=== PATIENT | female | born 1950 | race Caucasian/White ===

== ENCOUNTER → 2020-12-17 | Outpatient (CLI) | payer SELFPAY | LOC: M LABSMTC 11:01 | PROVIDERS: ATTEND Pediatrics | DX: Z11.52 Encounter for screening for COVID-19 (principal) ==

== ENCOUNTER → 2024-04-13 | Outpatient (CLI) | payer MEDICARE ==
[~2024-04-13] MED LIST: GNP250TA9 PO; K 10100T PO; LEVO75TA4 PO; OYST500C PO; VITA100T59 PO; VITATAB73 PO
== END ==
LOC: M WHC 12:06 → MERGE 12:44
PROVIDERS: ATTEND Family Medicine
DX: Z85.3 Personal history of malignant neoplasm of breast (principal); Z90.12 Acquired absence of left breast and nipple

== ENCOUNTER → 2024-04-13 | Outpatient (CLI) | payer MEDICARE | LOC: MERGE 12:09 → M PLAIMG 12:09 | PROVIDERS: ATTEND Otolaryngology | DX: J32.8 Other chronic sinusitis (principal); Z85.3 Personal history of malignant neoplasm of breast; Z12.31 Encounter for screening mammogram for malignant neoplasm of breast; Z90.12 Acquired absence of left breast and nipple ==

== ENCOUNTER → 2024-05-01 | Outpatient (CLI) | payer MEDICARE | LOC: M CARPUL 07:51 → MERGE 10:30 | PROVIDERS: ATTEND Family Medicine | DX: R55 Syncope and collapse (principal) ==

== ENCOUNTER → 2024-05-01 | Outpatient (CLI) | payer MEDICARE | LOC: M RAD 07:54 → MERGE 08:00 | PROVIDERS: ATTEND Family Medicine | DX: R55 Syncope and collapse (principal) ==

== ENCOUNTER → 2025-05-18 | Outpatient (CLI) | payer MEDICARE ==
[~2025-05-18] MED LIST changes: +BUSP5TA PO
== END ==
LOC: M RAD 10:20
PROVIDERS: ATTEND Family Medicine
DX: R19.00 Intra-abdominal and pelvic swelling, mass and lump, unspecified site (principal)

== ENCOUNTER 2025-05-21 09:49 | Day surgery (SDC) | payer MEDICARE ==
[~2025-05-21] VITALS: Ht 170.2 cm; Wt 67.1 kg
[~2025-05-21 09:49] MED LIST changes: +LR 1,000 ML IV SCH
[2025-05-21] MEDS: CYCLOPENTOLATE 1% OPHTH SOLN 2 ML BTL OD SCH (11:15)
[2025-05-21] MEDS: FLURBIPROFEN 0.03% OPHTH SOLN 2.5 ML OD SCH (11:15)
[2025-05-21] MEDS: PHENYLEPHRINE 2.5% OPHTH SOL 2ML OD SCH (11:15)
[2025-05-21] MEDS: TETRACAINE 0.5% OPHTH SOLN 4ML OD SCH (11:15)
[2025-05-21] MEDS ORDERED: MIDAZOLAM INJ 2 MG/2 ML VIAL As Ordered ONE (12:29)
[2025-05-21] MEDS: LIDOCAINE 1% SDV 5 ML VIAL As Ordered ONE (13:01)
[2025-05-21] MEDS: CEFUROXIME 1 MG/0.1 ML INTRACAMERAL INJ As Ordered ONE (13:03)
[2025-05-21 13:38] VITALS: BP 113/59; TEMP 97.3; O2SAT 99
== END 2025-05-21 13:40 | disposition home or self-care (01) ==
LOC: M SDC 09:49
PROVIDERS: ATTEND Ophthalmology
DX: H25.11 Age-related nuclear cataract, right eye (principal); E03.9 Hypothyroidism, unspecified; F32.A Depression, unspecified; F41.9 Anxiety disorder, unspecified; Z79.890 Hormone replacement therapy; Z79.899 Other long term (current) drug therapy; Z85.3 Personal history of malignant neoplasm of breast; Z92.3 Personal history of irradiation; K21.9 Gastro-esophageal reflux disease without esophagitis; Z90.89 Acquired absence of other organs; Z87.891 Personal history of nicotine dependence
CPT/HCPCS: 66984; J0697; J2250; J3010; V2632

== ENCOUNTER 2025-08-20 10:53 | Day surgery (SDC) | payer MEDICARE ==
[~2025-08-20] VITALS: Ht 170.2 cm; Wt 68.4 kg
[~2025-08-20 10:53] MED LIST changes: +CEFUROXIME 1 MG/0.1 ML INTRACAMERAL INJ As Ordered ONE; +LIDOCAINE 1% SDV 5 ML VIAL As Ordered ONE
[2025-08-20] MEDS ORDERED: MIDAZOLAM INJ 2 MG/2 ML VIAL As Ordered ONE (12:03)
[2025-08-20] MEDS: TETRACAINE 0.5% OPHTH SOLN 4ML OS SCH (12:10)
[2025-08-20] MEDS: PHENYLEPHRINE 2.5% OPHTH SOL 2ML OS SCH (12:10)
[2025-08-20] MEDS: CYCLOPENTOLATE 1% OPHTH SOLN 2 ML BTL OS SCH (12:10)
[2025-08-20] MEDS: FLURBIPROFEN 0.03% OPHTH SOLN 2.5 ML OS SCH (12:10)
[2025-08-20 13:45] VITALS: BP 115/58; TEMP 97.1; O2SAT 98
== END 2025-08-20 13:59 | disposition home or self-care (01) ==
LOC: M SDC 10:53
PROVIDERS: ATTEND Ophthalmology
DX: H25.12 Age-related nuclear cataract, left eye (principal); E03.9 Hypothyroidism, unspecified; Z85.3 Personal history of malignant neoplasm of breast; Z79.899 Other long term (current) drug therapy; Z79.890 Hormone replacement therapy; Z92.3 Personal history of irradiation
CPT/HCPCS: 66984; J0697; J2250; J3010; V2632

== ENCOUNTER → 2025-08-22 | Outpatient (CLI) | payer MEDICARE ==
[~2025-08-22] MED LIST changes: -CEFUROXIME 1 MG/0.1 ML INTRACAMERAL INJ As Ordered ONE; -LIDOCAINE 1% SDV 5 ML VIAL As Ordered ONE; -LR 1,000 ML IV SCH
== END ==
LOC: M CLY 10:14
PROVIDERS: ATTEND Physician Assistant
DX: S82.51XA Displaced fracture of medial malleolus of right tibia, initial encounter for closed fracture (principal); M17.11 Unilateral primary osteoarthritis, right knee; M25.571 Pain in right ankle and joints of right foot; M25.561 Pain in right knee; Y93.9 Activity, unspecified; Y92.9 Unspecified place or not applicable

== ENCOUNTER → 2025-10-04 | Outpatient (CLI) | payer MEDICARE | LOC: M PLAIMG 12:25 | PROVIDERS: ATTEND Orthopaedic Surgery | DX: S86.911A Strain of unspecified muscle(s) and tendon(s) at lower leg level, right leg, initial encounter (principal); S80.01XA Contusion of right knee, initial encounter; M94.261 Chondromalacia, right knee; M25.761 Osteophyte, right knee; M71.21 Synovial cyst of popliteal space [Baker], right knee; X58.XXXA Exposure to other specified factors, initial encounter; Y92.9 Unspecified place or not applicable; Y93.9 Activity, unspecified; Y99.9 Unspecified external cause status ==